=== PATIENT | male | born 1950 | race Caucasian/White ===

== ENCOUNTER 2017-06-22 13:47 | Day surgery (SDC) | payer MEDICARE, OTHER ==
[2017-06-22] MEDS ORDERED: LACTATED RINGERS 1,000 ML IV ONE (14:15)
[2017-06-22] MEDS ORDERED: MIDAZOLAM 2 MG/2 ML VIAL IVP ONE (14:43)
[2017-06-22] MEDS ORDERED: fentaNYL 100 MCG/2 ML VIAL IVP ONE (14:43)
[2017-06-22 15:54] VITALS: BP 126/72
== END 2017-06-22 13:48 | disposition home or self-care (01) ==
LOC: SDS 13:47
PROVIDERS: ATTEND Surgery
PROC: 0DJD8ZZ Inspection of Lower Intestinal Tract, Via Natural or Artificial Opening Endoscopic (ICD-10-PCS; principal; 2017-06-22 14:45)
DX: Z12.11 Encounter for screening for malignant neoplasm of colon (principal); K57.90 Diverticulosis of intestine, part unspecified, without perforation or abscess without bleeding; I25.10 Atherosclerotic heart disease of native coronary artery without angina pectoris; Z79.82 Long term (current) use of aspirin; Z79.02 Long term (current) use of antithrombotics/antiplatelets; Z95.1 Presence of aortocoronary bypass graft
CPT/HCPCS: G0121; J7120

== ENCOUNTER 2018-02-22 08:56 | Outpatient (CLI) | payer MEDICARE, OTHER ==
[2018-02-22 17:22] LABS: BASOPHILS # (AUTO) 0.1 10^3/uL (0.0-0.1); BASOPHILS % (AUTO) 1.1 %; EOSINOPHILS # (AUTO) 0.2 10^3/uL (0.0-0.7); EOSINOPHILS % (AUTO) 3.2 %; HGB - HEMOGLOBIN 14.7 g/dL (14.0-18.0); LYMPHOCYTES # (AUTO) 1.1 10^3/uL (1.5-3.5); LYMPHOCYTES % (AUTO) 21.7 %; MEAN CORPUSCULAR HEMOGLOBIN 30.8 pg (27.0-31.0); MEAN CORPUSCULAR HGB CONC 33.9 g/dL (32.0-36.0); MEAN CORPUSCULAR VOLUME 90.7 fL (80.0-94.0); MEAN PLATELET VOLUME 6.8 fL (7.4-11.4); MONOCYTES # (AUTO) 0.6 10^3/uL (0.0-1.0); MONOCYTES % (AUTO) 12.2 %; NEUTROPHILS # (AUTO) 3.1 10^3/uL (1.5-6.6); NEUTROPHILS % (AUTO) 61.8 %; PLT - PLATELET COUNT 230 10^3/uL (130-450); RED BLOOD COUNT 4.77 10^6/uL (4.70-6.10); RED CELL DISTRIBUTION WIDTH 12.8 % (12.0-15.0)
[2018-02-22 17:37] LABS: ALBUMIN 4.4 g/dL (3.2-5.5); ALBUMIN/GLOBULIN RATIO 1.7 (1.0-2.2); ALKALINE PHOSPHATASE 57 IU/L (42-121); ALT ALANINE AMINOTRANSFERASE 19 IU/L (10-60); AST ASPARTATE AMINOTRANSFERASE 22 IU/L (10-42); BILIRUBIN,TOTAL 0.9 mg/dL (0.2-1.0); BUN - BLOOD UREA NITROGEN 13 mg/dL (6-20); CALCIUM 9.2 mg/dL (8.5-10.3); CARBON DIOXIDE - CO2 27 mmol/L (21-32); CHLORIDE 97 mmol/L (101-111); CHOL/HDL RATIO 3.4 (<5.0); CHOLESTEROL 214 mg/dL; CREATININE 0.9 mg/dL (0.6-1.2); GFR - MDRD 84 (>89); GLUCOSE 104 mg/dL (70-100); HDL CHOLESTEROL 63 mg/dL; LDL CHOLESTEROL,CALCULATED 132 mg/dL; LDL/HDL RATIO 2.1 (<3.6); SODIUM 133 mmol/L (135-145); VLDL CHOLESTEROL 19 mg/dL
[2018-02-22 17:42] LABS: HB2 TOTAL 16.4 g/dL; HEMOGLOBIN A1C 0.59 g/dL; HEMOGLOBIN A1C % 5.4 % (4.6-6.2)
== END 2018-02-22 08:57 | disposition home or self-care (01) ==
LOC: LAB.F 08:56
PROVIDERS: ATTEND Nurse Practitioner Family
DX: I70.90 Unspecified atherosclerosis (principal); E78.5 Hyperlipidemia, unspecified; R73.01 Impaired fasting glucose; Z12.5 Encounter for screening for malignant neoplasm of prostate; F32.9 Major depressive disorder, single episode, unspecified
CPT/HCPCS: 36415; 80053; 80061; 83036; 84443; 85025; G0103; 83721; 84153

== ENCOUNTER 2019-09-06 07:28 | Outpatient (CLI) | payer MEDICARE, OTHER ==
[2019-09-06 17:05] LABS: ALBUMIN 4.3 g/dL (3.2-5.5); ALBUMIN/GLOBULIN RATIO 1.5 (1.0-2.2); ALKALINE PHOSPHATASE 56 IU/L (42-121); ALT ALANINE AMINOTRANSFERASE 23 IU/L (10-60); AST ASPARTATE AMINOTRANSFERASE 20 IU/L (10-42); BILIRUBIN,TOTAL 0.7 mg/dL (0.2-1.0); BUN - BLOOD UREA NITROGEN 13 mg/dL (6-20); CALCIUM 9.5 mg/dL (8.5-10.3); CARBON DIOXIDE - CO2 29 mmol/L (21-32); CHLORIDE 99 mmol/L (101-111); CHOL/HDL RATIO 2.6 (<5.0); CHOLESTEROL 176 mg/dL; CREATININE 0.9 mg/dL (0.6-1.2); GFR - MDRD 84 (>89); GLUCOSE 109 mg/dL (70-100); HDL CHOLESTEROL 69 mg/dL; LDL CHOLESTEROL,CALCULATED 85 mg/dL; LDL/HDL RATIO 1.2 (<3.6); SODIUM 135 mmol/L (135-145); TOTAL PROTEIN 7.2 g/dL (6.7-8.2); VLDL CHOLESTEROL 22 mg/dL
== END 2019-09-06 07:29 | disposition home or self-care (01) ==
LOC: LAB.S 07:28
PROVIDERS: ATTEND Internal Medicine
DX: E78.5 Hyperlipidemia, unspecified (principal); Z12.5 Encounter for screening for malignant neoplasm of prostate
CPT/HCPCS: 36415; 80053; 80061; G0103; 83721; 84153

== ENCOUNTER 2019-12-05 07:00 | Outpatient (CLI) | payer MEDICARE, OTHER | END 2019-12-05 23:59 | disposition home or self-care (01) | LOC: LAB.R 07:00 | PROVIDERS: ATTEND Internal Medicine | DX: R19.7 Diarrhea, unspecified (principal) | CPT/HCPCS: 81599; 87045; 87046; 87177; 87209; 87493 ==

== ENCOUNTER 2020-05-10 16:20 | Outpatient (CLI) | payer MEDICARE, OTHER ==
--- NOTE | 2020-05-10 17:05 | XRAY Report ---
PROCEDURE: Wrist 2 View LT INDICATIONS: D48.5 TECHNIQUE: 2 views of the wrist were acquired. COMPARISON: No previous study is available for comparison. 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 An ossification posterior to the wrist may represent an intra-articular loose body. Degenerative changes are seen at the capitolunate and capitoscaphoid petey culations. Soft tissues: No suspicious soft tissue calcifications. Surgical clips are seen projecting over the volar aspect of the wrist. 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 Possible ossified intra-articular loose body at the dorsal aspect of the wrist. Reviewed by: Philip Bowling MD on 05/10/2020 5:03 PM PDT Approved by: Philip Bowling MD on 05/10/2020 5:03 PM PDT Station ID: [id number]
== END 2020-05-10 16:21 | disposition home or self-care (01) ==
LOC: DI.S 16:20
PROVIDERS: ATTEND Internal Medicine
DX: M19.032 Primary osteoarthritis, left wrist (principal); M84.48XA Pathological fracture, other site, initial encounter for fracture

== ENCOUNTER 2020-09-03 13:04 | Outpatient (CLI) | payer MEDICARE, OTHER ==
--- NOTE | 2020-09-03 14:18 | CT Report ---
PROCEDURE: UPPER EXTREMITY WO - LT INDICATIONS: WRIST - POST TRAUMATIC OSTEOARTHRITIS LT WRIST TECHNIQUE: Noncontrast 3 mm axial sections acquired of the left wrist, with coronal and sagittal reformats. COMPARISON: Left wrist radiographs dated 05/10/2020 FINDINGS: Image quality: Excellent. Bones: A chronic ununited fracture is seen at the waist of the scaphoid with cortication of the frac ture margins and subcortical cystic changes as well as marginal osteophyte formation. There is wideni ng of the dorsal scapholunate interval to 6 mm that is compatible with associated scapholunate ligame nt tearing. Dorsal tilting of the lunate is seen with mild proximal migration of the capitate, compat ible with early scapholunate advanced collapse (SNAC wrist). Severe joint space narrowing is seen at the radial scaphoid articulation with remodeling of the artic ular surfaces and subchondral cystic changes. Moderate to severe joint space narrowing is seen at the radiolunate articulation. There is severe narrowing of the capitolunate and hamatolunate articulatio ns. Additional scattered degenerative cystic changes are seen in the hamate, triquetrum, and capitate . Mild degenerative changes are seen in the distal radioulnar joint. Soft tissues: No acute soft tissue edema is seen. A probable small amount of fluid is seen surroundi ng the extensor pollicis longus and extensor radialis brevis and longus tendons likely represents mil d tenosynovitis. However, the ligaments and tendons as well as the articular cartilages are not well evaluated with CT. An ossified loose body is seen dorsal to the scaphoid measuring 14 x 7 x 10 mm. Ad ditional adjacent smaller osseous fragments are noted. IMPRESSION: 1. Chronic ununited fracture at the waist of the scaphoid with widening of the dorsal scapholunate i nterval that is suspicious for concurrent scapholunate ligament tearing. 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 2. Multifocal degenerative changes throughout the carpal bones as described above, most severe at th e radioscaphoid articulation. 3. Multiple ossified intra-articular loose bodies are seen at the dorsum of the wrist, the largest o f which measures up to 14 mm in maximum diameter. 4. Probable tenosynovitis of the second and third extensor compartment tendons. Reviewed by: Philip Bowling MD on 09/03/2020 2:17 PM PST Approved by: Philip Bowling MD on 09/03/2020 2:17 PM PST Station ID: [id number]
== END 2020-09-03 13:05 | disposition home or self-care (01) ==
LOC: DI 13:04
PROVIDERS: ATTEND Orthopaedic Surgery
DX: S62.002K Unspecified fracture of navicular [scaphoid] bone of left wrist, subsequent encounter for fracture with nonunion (principal); M19.032 Primary osteoarthritis, left wrist

== ENCOUNTER 2020-09-20 13:31 | Outpatient (CLI) | payer MEDICARE, OTHER ==
[2020-09-20 15:05] LABS: CALCIUM 9.1 mg/dL (8.5-10.3); CREATININE 0.8 mg/dL (0.6-1.2)
== END 2020-09-20 13:32 | disposition home or self-care (01) ==
LOC: LAB 13:31
PROVIDERS: ATTEND Orthopaedic Surgery
DX: Z01.818 Encounter for other preprocedural examination (principal); G56.02 Carpal tunnel syndrome, left upper limb; M19.132 Post-traumatic osteoarthritis, left wrist; Z20.828 Contact with and (suspected) exposure to other viral communicable diseases; I73.9 Peripheral vascular disease, unspecified; E78.5 Hyperlipidemia, unspecified
CPT/HCPCS: 36415; 80048; 93005; U0004

== ENCOUNTER 2020-09-25 11:00 | Day surgery (SDC) | payer MEDICARE, OTHER ==
[~2020-09-25 11:00] MED LIST: ACETAMINOPHEN 1,000 MG/100 ML 100 ML IV ONE; LIDOCAINE 1%-EPI 1:100000 20 ML MDV ONE
[2020-09-25] MEDS ORDERED: LACTATED RINGERS 1,000 ML IV ONE (11:23)
[2020-09-25] MEDS ORDERED: MIDAZOLAM 2 MG/2 ML VIAL IVP ONE (11:52)
[2020-09-25] MEDS ORDERED: PROPOFOL 200 MG/20 ML VIAL IVP ONE (11:52)
[2020-09-25] MEDS ORDERED: KETAMINE 500 MG/10 ML VIAL IVP ONE (11:52)
[2020-09-25] MEDS ORDERED: ACETAMINOPHEN 1,000 MG/100 ML 100 ML IV ONE (11:52)
[2020-09-25] MEDS ORDERED: fentaNYL 100 MCG/2 ML VIAL IVP ONE (11:52)
[2020-09-25] MEDS ORDERED: ONDANSETRON 4 MG/2 ML VIAL IVP PRN (12:00)
[2020-09-25] MEDS ORDERED: METOCLOPRAMIDE 10 MG/2 ML VIAL IVP PRN (12:00)
[2020-09-25] MEDS ORDERED: MORPHINE 2 MG/ML CARPUJECT IVP PRN (12:00)
[2020-09-25] MEDS ORDERED: ATROPINE ABBOJECT 1 MG/10 ML SYRINGE IVP PRN (12:00)
[2020-09-25] MEDS ORDERED: NALOXONE 0.4 MG/ML VIAL IVP PRN (12:00)
[2020-09-25] MEDS ORDERED: ePHEDrine 50 MG/ML VIAL IVP PRN (12:00)
[2020-09-25] MEDS ORDERED: LACTATED RINGERS 1,000 ML IV SCH (12:00)
[2020-09-25] MEDS ORDERED: HYDROmorphone 0.5 MG/0.5 ML SYRINGE IVP PRN (12:00)
[2020-09-25] MEDS ORDERED: fentaNYL 100 MCG/2 ML VIAL IVP PRN (12:00)
--- NOTE | 2020-09-25 12:00 | ANESTHESIA ---
Pre-Anesthesia VS, & Labs - Diagnosis left carpal tunnel syndrome - Procedure Left CTR, Vital Signs: Temp Pulse Resp BP Pulse Ox 36.3 C L 79 16 143/77 H 99 09/25/20 11:16 09/25/20 11:16 09/25/20 11:16 09/25/20 11:16 09/25/20 11:16 Height: 5 ft 6 in Weight (kg): 67.4 kg Body Mass Index: 24.0 BMI Classification: Healthy weight - NPO Last Fluid Intake: 1100, black coffee - Lab Results Lab results reviewed: Yes Home Medications and Allergies Home Medications: Ambulatory Orders cilostazoL [Pletal] 100 mg PO BID 09/18/20 Clopidogrel [Plavix] 75 mg PO DAILY 06/22/17 Simvastatin 80 mg PO DAILY 06/22/17 cilostazoL [Pletal] 100 mg PO BID 09/18/20 Allergies/Adverse Reactions: Allergies Allergy/AdvReac Type Severity Reaction Status Date / Time No Known Drug Allergies Allergy Verified 06/18/17 15:03 Anes History & Medical History - Anesthetic History Anesthesia Complications: reports: No previous complications Family history of Anesthesia Complications: Denies Family history of Malignant Hyperthermia: Denies - Medical History Cardiovascular: reports: High cholesterol, Coronary artery disease, Peripheral Vascular Disease Pulmonary: reports: None Gastrointestinal: reports: None Urinary: reports: None Musculoskeletal: reports: Osteoarthritis Endocrine/Autoimmune: reports: None Skin: reports: None - Surgical History General: Colonoscopy, Other Cardiothoracic: CABG, Coronary stent, Cardiac catheterization, Other Orthopedic: Knee replacement Results - EKG Results EKG Comparison: Reviewed EKG, Normal EKG Exam General: Alert, Oriented x3, Cooperative, No acute distress Dental: WNL Mouth Openin Fingerbreadth Neck Mobility: Normal Mallampati classification: I Respiratory: Lungs clear, Normal breath sounds, No respiratory distress, No accessory muscle use Cardiovascular: Regular rate, Normal S1, Normal S2, No murmurs Plan Anesthesia Type: Other Block (supraclavicular) Regional Block: Per Surgeon's request for Post Op pain control Consent for Procedure(s) Verified and Reviewed: Yes Code Status: Attempt Resuscitation ASA classification: 3-Severe systemic disease Is this case an emergency?: No
[2020-09-25] MEDS ORDERED: LIDOCAINE MPF 1%-EPI 1:200000 30 ML VIAL SUBQ ONE ×2 (12:17)
[2020-09-25] MEDS ORDERED: HYDROcod/ACETAM 5/325 MG TABLET PO PRN (13:14)
[2020-09-25] MEDS ORDERED: HYDROcod/ACETAM 10 MG/325 MG TABLET PO PRN (13:14)
[2020-09-25] MEDS ORDERED: KETOROLAC 15 MG/ML VIAL IVP STA (13:14)
[2020-09-25 13:27] VITALS: BP 140/72
--- NOTE | 2020-09-25 13:32 | OPERATIVE REPORT ---
Operative Report - General Procedure Date: 09/25/20 Planned Procedure: Left carpal tunnel release and left radial styloidectomy Pre-Op Diagnosis: Left carpal tunnel syndrome, posttraumatic arthritis left wrist Procedure Performed: Left carpal tunnel release and left wrist radial styloidectomy Post Op Diagnosis: Same as preoperative diagnosis - Procedure Note Primary Surgeon: Dhiraj Ely M.D. Secondary Surgeon: CHIQUI Khalil Anesthesia Provider: Carrie Ruiz CRNA Anesthesia Technique: Regional block Estimated Blood Loss (mL): 5 Indications: This is a 70-year-old gentleman with a history of fracture to the left scaphoid about 50 years ago. He now has pain to his left wrist that is well localized to the radial aspect of the left wrist. This is been present off and on for a number of years and is gradually worsened. He also has some stiffness to left wrist. His other problem is numbness to fingers of left hand in the median nerve distribution associated with some decreased strength with thumb pinch. He has thenar atrophy, positive Tinel and Phalen with decreased two-point discrimination consistent with left carpal tunnel syndrome. His x-rays and CT scan of the left wrist show a scapholunate advanced collapse arthritic wrist pattern with radial scaphoid osteophytes that are fairly marked and restricting radial deviation. Findings: He had a nonspecific tenosynovitis about the left carpal tunnel and slight atrophy of the median nerve with narrowing beneath the transverse carpal ligament. There was a moderately large osteophyte involving the radial styloid and scaphoid, kissing osteophytes. - Other Other Information/Narrative: Patient received a supra clavicular block to left arm. He was brought to the operating room table, placed in the supine position with an arm table to the side of the table. A pneumatic tourniquet was applied to the proximal left arm. The left upper extremity was prepped and draped in a sterile manner in the usual fashion. A timeout procedure was performed by the entire operating room team and all were in agreement. Local anesthesia, 1% epinephrine were injected at the operative sites, 9 cc to both incisions in total. A 2 and half centimeter incision was made base of left palm in line with the third webspace. The incision started just below the wrist flexor crease and extended distally. A small self-retaining retractor was inserted. The subcutaneous tissue and palmar aponeurosis were divided in line with the incision. The transverse carpal ligament was identified. The transverse carpal ligament was incised and then a protective groove retractor was inserted beneath the carpal ligament. The transverse carpal ligament was then divided from proximal to distal under direct visualization. The remaining transverse carpal ligament was divided from distal to proximal, again using a groove retractor to protect the median nerve and carpal tunnel structures. A full decompression of the median nerve was achieved. The tourniquet was deflated after 8 minutes. Hemostasis was achieved electrocautery. Skin incision closed with 2 nylon vertical mattress sutures.A second incision was made over the snuffbox. Care was taken to avoid superficial radial nerve with spreading of subcutaneous tissues with a tenotomy scissor. The tendons were protected and the capsule to the radial scaphoid joint was opened. The osteophytes about the scaphoid and radial styloid were exposed and were removed with a small bur. A decompression of the radial scaphoid joint was achieved with osteophyte excision and this was verified with the mini C arm as well. The joint was irrigated. The capsule was closed with 2-0 Vicryl. The subcutaneous tissue was closed with 2-0 Vicryl and the skin was closed with interrupted 4-0 nylon. Xeroform, dry sterile dressing, cast padding and a Juan wrap was used to provide a soft, bulky, mildly compression dressing to the left hand and forearm. He tolerated the procedure well. Tourniquet time was about 45 minutes in total
--- NOTE | 2020-09-25 17:10 | ANESTHESIA POST OP EVALUATION ---
Anesthesia Post Eval - Post Anesthesia Eval Vitals: Last Vital Signs Temp 36.3 C L 09/25/20 13:15 Pulse 80 09/25/20 13:26 Resp 15 09/25/20 13:26 BP 140/72 H 09/25/20 13:26 Pulse Ox 100 09/25/20 13:26 CV Function Including HR & BP: positive: Stable Pain Control: positive: Satisfactory Nausea & Vomiting: positive: Negative Mental Status: positive: Baseline Respiratory Status: Airway Patent Hydration Status: Satisfactory Anesthesia Complications: positive: None
== END 2020-09-25 11:01 | disposition home or self-care (01) ==
LOC: SDS 11:00
PROVIDERS: ATTEND Orthopaedic Surgery
DX: G56.02 Carpal tunnel syndrome, left upper limb (principal); M19.132 Post-traumatic osteoarthritis, left wrist; M65.9 Synovitis and tenosynovitis, unspecified; I25.10 Atherosclerotic heart disease of native coronary artery without angina pectoris; I73.9 Peripheral vascular disease, unspecified; Z95.1 Presence of aortocoronary bypass graft; Z95.5 Presence of coronary angioplasty implant and graft; Z79.02 Long term (current) use of antithrombotics/antiplatelets
CPT/HCPCS: 25230; 64721; J0131; J7120

== ENCOUNTER 2020-09-30 07:00 | Outpatient (CLI) | payer MEDICARE, OTHER ==
--- NOTE | 2020-09-30 15:37 | XRAY Report ---
PROCEDURE: Wrist 3 View LT INDICATIONS: POST OP, OSTEOARTHRITIS TECHNIQUE: 3 views of the wrist were acquired. COMPARISON: X-ray wrist 04/10/2020 FINDINGS: Bones: No fractures or dislocations. No suspicious bony lesions. There is appearance of a nonunion scaphoid fracture and subsequent sclerosis, unchanged compared to prior exam. Clips are noted overly ing the radial styloid. Degenerative changes at the radial scaphoid articulation are identified. Calc ification at this region is present which could represent a loose body. Arthritic changes at the capi tolunate and capitoscaphoid articulations are also noted. Soft tissues: No suspicious soft tissue calcifications. IMPRESSION: Stable interval exam demonstrating chronic nonunion of scaphoid waist fracture with superimposed dege nerative change. Reviewed by: Keisha Coffey MD on 09/30/2020 3:35 PM PST Approved by: Keisha Coffey MD on 09/30/2020 3:35 PM PST Station ID: [id number]
== END 2020-09-30 23:59 | disposition home or self-care (01) ==
LOC: DI.N 07:00
PROVIDERS: ATTEND Physician Assistant
DX: M19.132 Post-traumatic osteoarthritis, left wrist (principal)

== ENCOUNTER 2020-11-14 08:00 | Outpatient (CLI) | payer MEDICARE, OTHER ==
--- NOTE | 2020-11-14 17:17 | XRAY Report ---
PROCEDURE: Wrist 3 View LT INDICATIONS: POST-TRAUMATIC OSTEOARTHRITIS, LEFT WRIST TECHNIQUE: 3 views of the wrist were acquired. COMPARISON: 09/30/2020 FINDINGS: Bones: Post surgical changes are again noted involving soft tissue over radial aspect of distal radi us unchanged from prior study. No gross hardware loosening or failure is seen. Chronic nonunion of sc aphoid waist fracture is again seen with persistent lucency along fracture site and sclerotic margin. No new fracture or dislocation. Osteoarthritic changes at radiocarpal joint and scaphotrapezial join t is seen. No new fractures or dislocations. No suspicious bony lesions. Scaphoid view: Increased sclerosis involving proximal fragment of the scaphoid, suspicious for avasc ular necrosis. Soft tissues: No suspicious soft tissue calcifications. IMPRESSION: Chronic nonunion of scaphoid waist fracture with increased sclerotic changes involving proximal fragm ent concerning for avascular necrosis. No new fracture or dislocation. Diffuse wrist joint osteoarthr itis. Reviewed by: Darrick Nicholas MD on 11/14/2020 5:15 PM PST Approved by: Darrick Nicholas MD on 11/14/2020 5:15 PM PST Station ID: [id number]
== END 2020-11-14 23:59 | disposition home or self-care (01) ==
LOC: DI.N 08:00
PROVIDERS: ATTEND Physician Assistant
DX: S62.002K Unspecified fracture of navicular [scaphoid] bone of left wrist, subsequent encounter for fracture with nonunion (principal); M19.032 Primary osteoarthritis, left wrist

== ENCOUNTER 2021-01-10 14:25 | Outpatient (CLI) | payer MEDICARE, OTHER | END 2021-01-10 14:26 | disposition critical access hospital (66) | LOC: EMS 14:25 | PROVIDERS: ATTEND Radiology Diagnostic Radiology | DX: F41.9 Anxiety disorder, unspecified (principal) | CPT/HCPCS: A0425; A0429 ==

== ENCOUNTER 2021-01-10 15:15 | Emergency (ER) | payer MEDICARE, OTHER ==
[2021-01-10] MEDS ORDERED: LORazepam 2 MG/ML VIAL IVP STA ×2 (15:28→16:25)
--- NOTE | 2021-01-10 15:39 | ED Physician Documentation ---
History of Present Illness - Stated complaint Stated Complaint: ANXIETY - Additonal information Additional information: 70-year-old male was brought into the emergency department for evaluation of what is suspected to be a panic attack. Per EMS report the patient does have a history of anxiety though it is untreated. His had reported that for the last few days he has been getting increasingly anxious. He woke up at about 2 this morning with a lot of dread and worry. EMS reported that there was concern he thought he may be dying. On presentation to the emergency department the patient is alert breathing deeply and tachypneic. He is not able to meaningfully participate in the history. When asked questions he will grab his head and say oh my God. pmh: HTN, HLD, CABG meds: plavix, crestor Review of Systems Unable to obtain: Other (panic attack) PD PAST MEDICAL HISTORY - Past Medical History Cardiovascular: High cholesterol, Coronary artery disease, Peripheral Vascular Disease Respiratory: None Endocrine/Autoimmune: None GI: None : None HEENT: Chronic vision loss Psych: None Musculoskeletal: Osteoarthritis Derm: None - Past Surgical History General: Colonoscopy, Other Ortho: Knee replacement Cardiovascular: CABG, Coronary stent, Cardiac catheterization, Other - Present Medications Home Medications: Ambulatory Orders Medication Instructions Recorded Confirmed Clopidogrel [Plavix] 75 mg PO DAILY 06/22/17 09/25/20 Simvastatin 80 mg PO DAILY 06/22/17 09/25/20 cilostazoL [Pletal] 100 mg PO BID 09/18/20 09/25/20 oxyCODONE [Roxicodone] 5 mg PO Q4-6H #14 tablet 09/25/20 LORazepam [Ativan] 1 mg PO BID PRN #10 tablet 01/10/21 hydrOXYzine HCL [Hydroxyzine HCl] 25 mg PO BID PRN #20 tablet 01/10/21 - Allergies Allergies/Adverse Reactions: Allergies Allergy/AdvReac Type Severity Reaction Status Date / Time No Known Drug Allergies Allergy Verified 01/10/21 15:24 PD ED PE EXPANDED - General General: Anxious - Cardiac Cardiac: Regular Rate, Regular Rhythm, Radial strong equal, Cap refill < 2 sec - Respiratory Respiratory: Clear to ausultation gretel, Other (tachypneic) - Abdomen Abdomen: Normal Bowel sounds. No: Tender to palpation - Derm Derm: Normal color, Warm and dry - Neuro Neuro: Alert and Oriented X 3, CNII-XII intact - Psych Psych: Anxious (Patient breathing heavily and deeply, when asked questions will just respond with oh my God) Results - Vitals Vitals: Vital Signs - 24 hr 01/10/21 01/10/21 15:24 15:38 Temperature 36.6 C 36.6 C Heart Rate 94 94 Respiratory 22 29 H Rate Blood Pressure 161/85 H 161/85 H O2 Saturation 100 100 Oxygen O2 Source Room air - EKG (time done) 1603 Rate: Rate (enter#) (85) Rhythm: NSR Payette: Normal Intervals: Normal NC QRS: Normal Ischemia: Normal ST segments Compare to prior EKG: Unchanged from prior EKG Computer interpretation: Agree with computer - Labs Labs: Laboratory Tests 01/10/21 01/10/21 01/10/21 15:40 15:40 15:40 WBC 7.6 RBC 4.71 Hgb 14.7 Hct 41.0 L MCV 87.0 MCH 31.2 H MCHC 35.9 RDW 11.7 L Plt Count 265 MPV 8.3 Neut # (Auto) 5.5 Lymph # (Auto) 1.2 L Real # (Auto) 0.8 Eos # (Auto) 0.0 Baso # (Auto) 0.0 Absolute Nucleated RBC 0.00 Nucleated RBC % 0.0 Sodium 129 L Potassium 3.3 L Chloride 92 L Carbon Dioxide 21 Anion Gap 16.0 H BUN 12 Creatinine 0.8 Estimated GFR (MDRD) 96 Glucose 110 H Calcium 9.9 Total Bilirubin 0.9 AST 25 ALT 25 Alkaline Phosphatase 62 Troponin I High Sens < 2.3 L Total Protein 7.6 Albumin 4.5 Globulin 3.1 Albumin/Globulin Ratio 1.5 Lipase 34 PD MEDICAL DECISION MAKING - ED course Complexity details: reviewed results, re-evaluated patient, considered differential, d/w patient, d/w family ED course: 70-year-old male presents the emergency department with panic and anxiety. He does have a history of baseline anxiety and after control of symptoms was achieved the reports that on a return trip home from [place] the patient and her had begun to argue about his driving habits and she knew that she was stressing him out. She also reports that recently he has begun to have some memory changes for which he has a referral to a neurologist pending. She feels that that is also increasing his anxiety. They returned home yesterday and this morning he woke up anxious and worried and was unable to get out of that cycle of worry. On presentation he appeared anxious very tachypneic breathing deeply and was unable to really answer most of my questions besides saying all my God. Screening labs are obtained he has a nonischemic sinus rhythm EKG. High- sensitivity troponin was negative. He is not significantly anemic. His sodium was 129 and his potassium was 3.2. This was repleted with 40 mEq of potassium. After initial presentation he was given 1 mg of Ativan followed by a second milligram which brought full resolution of his symptoms to a halt. At that point we were able to have a normal conversation and the patient had no focal neuro deficits reports of chest pain or shortness of breath. He does report that he has a longstanding history of anxiety and is worried about some upcoming appointments but he feels better now and does wish to be discharged home. I would like to start a clean out driller scription of hydroxyzine for him with a very limited amount of lorazepam. Patient will be seen by his primary care provider in follow-up Dr. Castillo. Emergent and worrisome return precautions were discussed. Departure - Departure Disposition: Home, Self Care Clinical Impression: Panic attack Condition: Stable Record reviewed to determine appropriate education?: Yes Instructions: ED Panic Attack Follow-Up: Jean Claude Castillo MD [Credentialed Staff Provider] - Prescriptions: LORazepam [Ativan] 1 mg PO BID PRN #10 tablet PRN Reason: Anxiety hydrOXYzine HCL [Hydroxyzine HCl] 25 mg PO BID PRN #20 tablet PRN Reason: Anxiety Comments: Isaac you were seen in the emergency department today after having a panic attack. Reassuring your EKG looked pretty pretty normal for age. You are doing well. I know that there is stress and anxiety that can precipitate these attacks. Continue to follow-up with your primary doctor. When feeling stressed or worried try to breathe slowly and deeply. I have written a prescription for hydroxyzine which can be used 2 or 3 times a day with anxiety. Be careful with this it may make you drowsy so do not drive after taking it. If the hydroxyzine does not help with your panic you may take 1 tablet of Ativan or lorazepam. Do not drive if taking this medication. If that does not help your symptoms please call your primary care doctor or return to the emergency department with another episode. It is important to continue to see the neurologist that you have been referred to as well as your primary doctor in follow-up
[2021-01-10 16:13] LABS: BASOPHILS % (AUTO) 0.4 %; EOSINOPHILS % (AUTO) 0.5 %; HGB - HEMOGLOBIN 14.7 g/dL (14.0-18.0); LYMPHOCYTES # (AUTO) 1.2 10^3/uL (1.5-3.5); MEAN CORPUSCULAR HEMOGLOBIN 31.2 pg (27.0-31.0); MEAN CORPUSCULAR HGB CONC 35.9 g/dL (32.0-36.0); MEAN PLATELET VOLUME 8.3 fL (7.4-11.4); MONOCYTES # (AUTO) 0.8 10^3/uL (0.0-1.0); MONOCYTES % (AUTO) 10.6 %; NEUTROPHILS # (AUTO) 5.5 10^3/uL (1.5-6.6); NEUTROPHILS % (AUTO) 72.2 %; PLT - PLATELET COUNT 265 10^3/uL (130-450); RED BLOOD COUNT 4.71 10^6/uL (4.70-6.10); RED CELL DISTRIBUTION WIDTH 11.7 % (12.0-15.0); WHITE BLOOD COUNT 7.6 x10^3/uL (4.8-10.8)
[2021-01-10 16:28] LABS: ALBUMIN 4.5 g/dL (3.2-5.5); ALBUMIN/GLOBULIN RATIO 1.5 (1.0-2.2); BILIRUBIN,TOTAL 0.9 mg/dL (0.2-1.0); CALCIUM 9.9 mg/dL (8.5-10.3); CREATININE 0.8 mg/dL (0.6-1.2); POTASSIUM 3.3 mmol/L (3.5-5.0); TOTAL PROTEIN 7.6 g/dL (6.7-8.2)
--- NOTE | 2021-01-10 16:30 | XRAY Report ---
PROCEDURE: Chest 1 View X-Ray INDICATIONS: Chest Pain TECHNIQUE: One view of the chest was acquired. COMPARISON: None FINDINGS: Surgical changes and devices: Median sternotomy changes and CABG clips. Lungs and pleura: No pleural effusions or pneumothorax. Lungs are clear. Mediastinum: Mediastinal contours appear normal. Heart size is normal. Bones and chest wall: No suspicious bony lesions. Overlying soft tissues appear unremarkable. IMPRESSION: No acute findings demonstrated. Reviewed by: Satish Miles MD on 01/10/2021 4:29 PM PDT Approved by: Satish Miles MD on 01/10/2021 4:29 PM PDT Station ID: [id number]
[2021-01-10] MEDS ORDERED: POTASSIUM CHLORIDE 20 MEQ TABLET PO STA (17:12)
[2021-01-10] MEDS ORDERED: SODIUM CHLORIDE 0.9% 1,000 ML IV STA (17:12)
[2021-01-10 18:06] VITALS: BP 130/90
== END 2021-01-10 18:12 | disposition home or self-care (01) ==
LOC: EDUNIT# → ED 15:15 → SUPCPDRO 15:15 → ED 18:12
DX: F41.0 Panic disorder [episodic paroxysmal anxiety] (principal); I73.9 Peripheral vascular disease, unspecified; Z79.01 Long term (current) use of anticoagulants
CPT/HCPCS: 36415; 71045; 80053; 83690; 84484; 85025; 93005; 96374; 96376; 99284; A9270; J2060

== ENCOUNTER 2021-01-23 15:47 | Outpatient (CLI) | payer MEDICARE, OTHER ==
[2021-01-23 20:35] LABS: THYROID STIMULATING HORMONE 1.18 uIU/mL (0.34-5.60)
== END 2021-01-23 15:48 | disposition home or self-care (01) ==
LOC: LAB.S 15:47
PROVIDERS: ATTEND Internal Medicine
DX: R41.3 Other amnesia (principal)
CPT/HCPCS: 36415; 82607; 84443

== ENCOUNTER 2021-04-07 15:13 | Outpatient (CLI) | payer MEDICARE, OTHER ==
--- NOTE | 2021-04-07 20:26 | Ultrasound Report ---
PROCEDURE: Carotid Doppler Complete INDICATIONS: VASCULAR DEMENTIA, PERIPHERAL VASCULAR DISEASE TECHNIQUE: Color and pulse Doppler interrogation was performed of both carotid systems, with image documentation and velocity measurements. COMPARISON: None. FINDINGS: Right side: Brachial blood pressure: 144/81 mm Hg. Common carotid artery peak systolic velocity: 74.2 cm/sec. Internal carotid artery peak systolic velocity: 68.2 cm/sec. Internal carotid artery end diastolic velocity: 18 cm/sec. External carotid artery peak systolic velocity: 56.3 cm/sec. ICA/CCA peak systolic ratio: 0.9 . Valadez scale imaging description: Scattered atherosclerotic plaques are noted along distal common gallo tid artery and proximal internal and external carotid arteries. Percent internal carotid artery stenosis: Less than 50% . Vertebral artery: Flow direction is antegrade. Left side: Brachial blood pressure: 141/85 mm Hg. Common carotid artery peak systolic velocity: 68.7 cm/sec. Internal carotid artery peak systolic velocity: 70.1 cm/sec. Internal carotid artery end diastolic velocity: 20.6 cm/sec. External carotid artery peak systolic velocity: 73 cm/sec. ICA/CCA peak systolic ratio: 1.0 . Valadez scale imaging description: Scattered atherosclerotic plaques are noted along distal common gallo tid artery and proximal internal and external carotid arteries. Percent internal carotid artery stenosis: Less than 50% . Vertebral artery: Flow direction is antegrade. IMPRESSION: Scattered atherosclerotic disease in bilateral carotid arteries with less than 50% stenosis in bilate ral proximal internal carotid arteries. The estimate of stenosis included in the report of the imaging study was calculated using the NASCET method Reviewed by: Darrick Nicholas MD on 04/07/2021 8:25 PM PDT Approved by: Darrick Nicholas MD on 04/07/2021 8:25 PM PDT Station ID: [id number]
== END 2021-04-07 15:14 | disposition home or self-care (01) ==
LOC: DI 15:13
PROVIDERS: ATTEND Psychiatry & Neurology Neurology
DX: I65.23 Occlusion and stenosis of bilateral carotid arteries (principal)
CPT/HCPCS: 93880

== ENCOUNTER 2021-08-27 07:10 | Outpatient (CLI) | payer MEDICARE, OTHER ==
[2021-08-27 14:41] LABS: BASOPHILS # (AUTO) 0.1 10^3/uL (0.0-0.1); BASOPHILS % (AUTO) 0.8 %; EOSINOPHILS # (AUTO) 0.2 10^3/uL (0.0-0.7); EOSINOPHILS % (AUTO) 2.5 %; HCT - HEMATOCRIT 44.1 % (42.0-52.0); HGB - HEMOGLOBIN 14.7 g/dL (14.0-18.0); LYMPHOCYTES # (AUTO) 1.3 10^3/uL (1.5-3.5); LYMPHOCYTES % (AUTO) 21.4 %; MEAN CORPUSCULAR HEMOGLOBIN 31.1 pg (27.0-31.0); MEAN CORPUSCULAR HGB CONC 33.3 g/dL (32.0-36.0); MEAN CORPUSCULAR VOLUME 93.2 fL (80.0-94.0); MEAN PLATELET VOLUME 8.8 fL (7.4-11.4); MONOCYTES # (AUTO) 0.7 10^3/uL (0.0-1.0); MONOCYTES % (AUTO) 12.4 %; NEUTROPHILS # (AUTO) 3.7 10^3/uL (1.5-6.6); NEUTROPHILS % (AUTO) 62.7 %; PLT - PLATELET COUNT 189 10^3/uL (130-450); RED BLOOD COUNT 4.73 10^6/uL (4.70-6.10); RED CELL DISTRIBUTION WIDTH 12.2 % (12.0-15.0); WHITE BLOOD COUNT 5.9 x10^3/uL (4.8-10.8)
[2021-08-27 15:17] LABS: ALBUMIN/GLOBULIN RATIO 1.4 (1.0-2.2); BILIRUBIN,TOTAL 0.6 mg/dL (0.2-1.0); CALCIUM 9.2 mg/dL (8.5-10.3); CREATININE 0.9 mg/dL (0.6-1.2); POTASSIUM 4.3 mmol/L (3.5-5.0); TOTAL PROTEIN 6.8 g/dL (6.7-8.2)
== END 2021-08-27 07:11 | disposition home or self-care (01) ==
LOC: LAB.S 07:10
PROVIDERS: ATTEND Internal Medicine
DX: Z79.899 Other long term (current) drug therapy (principal); Z12.5 Encounter for screening for malignant neoplasm of prostate
CPT/HCPCS: 36415; 80053; 85025; G0103; 84153

== ENCOUNTER 2021-10-04 12:10 | Outpatient (CLI) | payer MEDICARE, OTHER | END 2021-10-04 23:59 | disposition home or self-care (01) | LOC: LAB.S 12:10 | PROVIDERS: ATTEND Emergency Medicine | DX: J02.9 Acute pharyngitis, unspecified (principal) | CPT/HCPCS: 87070 ==

== ENCOUNTER 2021-11-07 07:46 | Outpatient (CLI) | payer MEDICARE, OTHER ==
[2021-11-07 16:01] LABS: CHOL/HDL RATIO 2.5 (<5.0); CHOLESTEROL 142 mg/dL; HDL CHOLESTEROL 56 mg/dL; LDL CHOLESTEROL,CALCULATED 68 mg/dL; LDL/HDL RATIO 1.2 (<3.6); TRIGLYCERIDES 92 mg/dL; VLDL CHOLESTEROL 18 mg/dL
[2021-11-07 21:04] LABS: ESTIMATED AVERAGE GLUCOSE 108 mg/dL (70-100); HEMOGLOBIN A1c% 5.4 % (4.27-6.07)
== END 2021-11-07 07:47 | disposition home or self-care (01) ==
LOC: LAB.S 07:46
DX: I63.9 Cerebral infarction, unspecified (principal); I42.8 Other cardiomyopathies; R79.9 Abnormal finding of blood chemistry, unspecified
CPT/HCPCS: 36415; 80061; 83036; 83721; 83880

== ENCOUNTER 2021-11-14 11:53 | Outpatient (CLI) | payer MEDICARE, OTHER | END 2021-11-14 11:54 | disposition short-term general hospital (02) | LOC: EMS 11:53 | DX: R46.89 Other symptoms and signs involving appearance and behavior (principal) | CPT/HCPCS: A0425; A0429 ==

== ENCOUNTER 2023-01-22 14:14 | Outpatient (CLI) | payer MEDICARE, OTHER ==
[2023-01-22 20:10] LABS: LITHIUM 0.29 mmol/L
[2023-01-22 20:14] LABS: ALBUMIN 4.2 g/dL (3.2-5.5); ALBUMIN/GLOBULIN RATIO 1.4 (1.0-2.2); BILIRUBIN,TOTAL 0.5 mg/dL (0.2-1.0); CALCIUM 9.1 mg/dL (8.5-10.3); CREATININE 0.9 mg/dL (0.6-1.2); POTASSIUM 4.2 mmol/L (3.5-5.0); TOTAL PROTEIN 7.2 g/dL (6.7-8.2)
== END 2023-01-22 14:15 | disposition home or self-care (01) ==
LOC: LAB.S 14:14
PROVIDERS: ATTEND Internal Medicine
DX: F32.A Depression, unspecified (principal); Z51.81 Encounter for therapeutic drug level monitoring
CPT/HCPCS: 36415; 80053; 80178

== ENCOUNTER 2023-05-06 02:52 | Outpatient (CLI) | payer MEDICARE, OTHER | END 2023-05-06 23:59 | disposition critical access hospital (66) | LOC: EMS 02:52 | DX: R46.4 Slowness and poor responsiveness (principal); R41.0 Disorientation, unspecified; R00.0 Tachycardia, unspecified; R32 Unspecified urinary incontinence; R45.1 Restlessness and agitation; W18.30XA Fall on same level, unspecified, initial encounter; Y92.009 Unspecified place in unspecified non-institutional (private) residence as the place of occurrence of the external cause | CPT/HCPCS: A0425; A0429 ==

== ENCOUNTER 2023-05-06 03:29 | Emergency (ER) | payer MEDICARE, OTHER ==
--- NOTE | 2023-05-06 03:48 | ED Physician Documentation ---
History of Present Illness - Stated complaint Stated Complaint: GLF - Chief complaint Chief Complaint: Laceration - History obtained from History obtained from: Patient, Family (), EMS - Additonal information Additional information: 72-year-old man with history of coronary artery disease status post CABG, multiple CVAs, recent hospitalization at [facility] for hyponatremia, presents withAn episode tonight of unwitnessed collapse with possible head trauma (on Plavix, modified trauma called in the field). states that she went into the room and found him foaming at the mouth with eyes open unresponsive and stiff for a period of time. Upon EMS arrival patient appeared to be confused but rapidly improved on the way to the emergency department. No known seizure history. Review of Systems Constitutional: reports: Fatigue. denies: Fever, Chills Cardiac: denies: Chest pain / pressure Respiratory: denies: Dyspnea, Cough GI: denies: Nausea, Vomiting, Diarrhea Neurologic: reports: Seizure (Possible), Altered mental status. denies: Focal weakness, Numbness PD PAST MEDICAL HISTORY - Past Medical History Cardiovascular: High cholesterol, Coronary artery disease, Peripheral Vascular Disease Respiratory: None Endocrine/Autoimmune: None GI: None : None HEENT: Chronic vision loss Psych: None Musculoskeletal: Osteoarthritis Derm: None - Past Surgical History Past Surgical History: Yes General: Colonoscopy, Other Ortho: Knee replacement Cardiovascular: CABG, Coronary stent, Cardiac catheterization, Other - Present Medications Home Medications: Ambulatory Orders Medication Instructions Recorded Confirmed Clopidogrel [Plavix] 75 mg PO DAILY 06/22/17 05/06/23 Aspirin EC [Ecotrin] 81 mg PO DAILY 05/06/23 05/06/23 Atorvastatin Calcium [Lipitor] 80 mg PO DAILY 05/06/23 05/06/23 Cyanocobalamin (Vitamin B-12) 1,000 mcg PO DAILY 05/06/23 05/06/23 [Vitamin B-12] Levetiracetam [Keppra] 750 mg PO BID #60 tablet 05/06/23 Metoprolol Succinate [Toprol Xl] 25 mg PO DAILY 05/06/23 05/06/23 Sertraline HCl 100 mg PO DAILY 05/06/23 05/06/23 Tamsulosin HCl [Flomax] 1 cap PO DAILY 05/06/23 05/06/23 Ubidecarenone/Vit E Acet [Co Q-10 1 cap PO DAILY 05/06/23 05/06/23 100 mg Softgel] Vitamin B Complex 1 tab PO DAILY 05/06/23 05/06/23 glucosamine HCL [Glucosamine HCl] 1 tab PO DAILY 05/06/23 05/06/23 - Allergies Allergies/Adverse Reactions: Allergies Allergy/AdvReac Type Severity Reaction Status Date / Time No Known Drug Allergies Allergy Verified 05/06/23 03:43 - Social History Does the pt smoke?: No Smoking Status: Never smoker PD ED PE NORMAL - Vitals Vital signs reviewed: Yes - General General: No acute distress, Other (AOX2 (unable to correctly give the year)) - HEENT HEENT: Atraumatic, PERRL, EOMI, Moist mucous membranes, Pharynx benign - Neck Neck: No bony TTP, Other (c collar placed on arrival. unable to clear c spine due to age) - Cardiac Cardiac: RRR - Respiratory Respiratory: No respiratory distress, Clear bilaterally - Abdomen Abdomen: Non tender, Non distended - Back Back: No spinal TTP - Derm Derm: Normal color - Extremities Extremities: No deformity - Neuro Neuro: No motor deficit, No sensory deficit Eye Opening: Spontaneous Motor: Obeys Commands Verbal: Confused GCS Score: 14 - Psych Psych: Normal mood, Normal affect Results - Vitals Vitals: Vital Signs - 24 hr 05/06/23 05/06/23 05/06/23 03:29 04:04 04:30 Temperature 36.4 C L Heart Rate 107 H 112 H 102 H Respiratory 17 25 H 23 Rate Blood Pressure 129/79 137/85 H 141/83 H O2 Saturation 96 99 98 05/06/23 05/06/23 05/06/23 05:54 06:00 06:30 Temperature Heart Rate 117 H 133 H 116 H Respiratory 17 21 21 Rate Blood Pressure 133/76 H 126/54 L 136/79 H O2 Saturation 96 96 96 05/06/23 07:00 Temperature Heart Rate 128 H Respiratory 22 Rate Blood Pressure 139/73 H O2 Saturation 96 Oxygen O2 Source Room air - Labs Labs: Laboratory Tests 05/06/23 05/06/23 05/06/23 03:42 03:42 03:42 WBC 10.3 RBC 4.21 L Hgb 12.9 L Hct 36.7 L MCV 87.2 MCH 30.6 MCHC 35.1 RDW 12.5 Plt Count 213 MPV 8.1 Neut # (Auto) 8.5 H Lymph # (Auto) 0.7 L [place] # (Auto) 0.8 Eos # (Auto) 0.2 Baso # (Auto) 0.0 Absolute Nucleated RBC 0.00 Nucleated RBC % 0.0 Sodium 130 L Potassium 3.5 Chloride 98 L Carbon Dioxide 23 Anion Gap 9.0 BUN 24 H Creatinine 0.7 Estimated GFR (MDRD) 111 Glucose 101 Calcium 9.1 Magnesium 1.9 Total Bilirubin 0.6 AST 129 H ALT 163 H Alkaline Phosphatase 130 H Total Protein 6.6 Albumin 3.6 Globulin 3.0 Albumin/Globulin Ratio 1.2 Lipase 49 Procalcitonin Immunoas 0.13 Ethyl Alcohol < 10.0 PD Medical Decision Making - ED course ED course: 72yM presents to the ED after recent hospitalization for hyponatremia, with episode tonight of possible seizure. unwitnessed fall therefore modified trauma was called in the field with possibility of HT on plavix. C collar placed on arrival. CT head and c spine ordered as well as one view CXR and pelvic XR. cbc, abdominal panel, alcohol, procalcitonin ordered. plan to f/u results. 1g IV keppra ordered for seizure. 6:30am - Attempted to contact [facility] neurology but Dr. Wanda Erwin, [employer] neurologist, told transfer center to call Dr. Rollins when he arrives at 7am. The number the transfer center provided was to a clinic that is not open. We will continue to attempt to transfer to [facility]. Plan to endorse to incoming daytime ed md at 7am shift change. d/w Dr. Wanda Erwin, neurology - She states he sees Dr. Rollins for stroke. The patient previously followed with [facility] neurology for years. Dr. Erwin states she cannot comment on or advise about any new ongoing issue including seizure. She can give historical information and states he's had several strokes over the course of several years back to 2013. He had a workup for CVA in February and only uncovered multiple old lacunar strokes. transfer center called back with the correct [employer] neurologist- Dr. Isacc Beckwith. d/w Dr. Beckwith who recommends to give additional 1g keppra, order MRI head, and then discharge him for follow up with Dr. Rollins. patient will start 750 bid keppra outpatient. Departure - Departure Clinical Impression: Collapse, Weakness, Seizure Condition: Stable Instructions: First Aid Seizures Prescriptions: Levetiracetam [Keppra] 750 mg PO BID #60 tablet Comments: You were seen in the ED for first time seizure. You should not drive until cleared by a neurologist. The recommendation is to avoid swimming as well as other activities that could become hazardous if you have an unexpected seizure. Please follow up with Dr. Rollins in clinic. Return to the ED for new or worsening symptoms or other concerns. A prescription for anti-seizure medicine keppra was [facility] electronically to [facility].
[2023-05-06 03:50] LABS: BASOPHILS % (AUTO) 0.3 %; EOSINOPHILS # (AUTO) 0.2 10^3/uL (0.0-0.7); EOSINOPHILS % (AUTO) 2.3 %; HCT - HEMATOCRIT 36.7 % (42.0-52.0); HGB - HEMOGLOBIN 12.9 g/dL (14.0-18.0); LYMPHOCYTES # (AUTO) 0.7 10^3/uL (1.5-3.5); LYMPHOCYTES % (AUTO) 6.7 %; MEAN CORPUSCULAR HEMOGLOBIN 30.6 pg (27.0-31.0); MEAN CORPUSCULAR HGB CONC 35.1 g/dL (32.0-36.0); MEAN CORPUSCULAR VOLUME 87.2 fL (80.0-94.0); MEAN PLATELET VOLUME 8.1 fL (7.4-11.4); MONOCYTES # (AUTO) 0.8 10^3/uL (0.0-1.0); MONOCYTES % (AUTO) 8.1 %; NEUTROPHILS # (AUTO) 8.5 10^3/uL (1.5-6.6); NEUTROPHILS % (AUTO) 82.1 %; PLT - PLATELET COUNT 213 10^3/uL (130-450); RED BLOOD COUNT 4.21 10^6/uL (4.70-6.10); RED CELL DISTRIBUTION WIDTH 12.5 % (12.0-15.0); WHITE BLOOD COUNT 10.3 x10^3/uL (4.8-10.8)
[2023-05-06] MEDS ORDERED: levETIRAcetam 500 MG/5 ML VIAL IVP STA ×2 (03:52→07:25)
[2023-05-06 04:05] LABS: ALBUMIN 3.6 g/dL (3.2-5.5); ALBUMIN/GLOBULIN RATIO 1.2 (1.0-2.2); ALKALINE PHOSPHATASE 130 IU/L (42-121); ALT ALANINE AMINOTRANSFERASE 163 IU/L (10-60); AST ASPARTATE AMINOTRANSFERASE 129 IU/L (10-42); BILIRUBIN,TOTAL 0.6 mg/dL (0.2-1.0); BUN - BLOOD UREA NITROGEN 24 mg/dL (6-20); CALCIUM 9.1 mg/dL (8.5-10.3); CARBON DIOXIDE - CO2 23 mmol/L (21-32); CHLORIDE 98 mmol/L (101-111); CREATININE 0.7 mg/dL (0.6-1.3); ETOH - ETHANOL < 10.0 mg/dL; GFR - MDRD 111 (>89); GLUCOSE 101 mg/dL (74-104); LIPASE 49 U/L (11-82); MAGNESIUM 1.9 mg/dL (1.7-2.3); POTASSIUM 3.5 mmol/L (3.5-4.5); SODIUM 130 mmol/L (135-145); TOTAL PROTEIN 6.6 g/dL (6.4-8.9)
[2023-05-06] MEDS ORDERED: levETIRAcetam INJ 1,000 MG in SODIUM CHLORIDE 0.9% 100ML 100 ML IV STA ×2 (04:26→07:33)
--- NOTE | 2023-05-06 06:55 | XRAY Report ---
PROCEDURE: Chest 1 View X-Ray INDICATIONS: modified trauma TECHNIQUE: One view of the chest was acquired. COMPARISON: None. FINDINGS: Surgical changes and devices: The MTPJ. The most superior sternal wire is fractured. Lungs and pleura: Bilateral interstitial prominence. No focal consolidation. No pleural effusions or pneumothorax. Mediastinum: Mediastinal contours appear normal. Heart size is normal. Bones and chest wall: No suspicious bony lesions. Overlying soft tissues appear unremarkable. IMPRESSION: 1. Bilateral interstitial prominence suggesting mild CHF or atypical pneumonia. Recommend clinical co rrelation. No significant discrepancy with the preliminary interpretation. Reviewed by: Mateo Ng MD on 05/06/2023 6:54 AM PDT Approved by: Mateo Ng MD on 05/06/2023 6:54 AM PDT Station ID: [id number]
--- NOTE | 2023-05-06 06:59 | XRAY Report ---
PROCEDURE: Pelvis 1 View INDICATIONS: modified trauma TECHNIQUE: 1 view(s) of the pelvis acquired. COMPARISON: None. FINDINGS: Bones: No fractures or dislocations. No suspicious bony lesions. Yski-se-heautsbl osteoarthritis in hips and sacroiliac joints. Soft tissues: Visualized bowel gas pattern is normal. No suspicious soft tissue calcifications. N o history of a vascular stent in the right pelvis. IMPRESSION: No acute bony abnormality. Findings are concordant with preliminary interpretation provided by [facility]. Reviewed by: Mateo Ng MD on 05/06/2023 6:57 AM PDT Approved by: Mateo Ng MD on 05/06/2023 6:57 AM PDT Station ID: [id number]
--- NOTE | 2023-05-06 07:00 | CT Report ---
PROCEDURE: HEAD WO INDICATIONS: Head trauma, mod-severe TECHNIQUE: Noncontrast 4.5 mm thick angled axial sections acquired from the foramen magnum to the vertex. For r adiation dose reduction, the following was used: automated exposure control, adjustment of mA and/or kV according to patient size. COMPARISON: None. FINDINGS: Image quality: Excellent. CSF spaces: Basal cisterns are patent. No extra-axial fluid collections. Ventricles are normal in size and shape. Brain: No midline shift. No intracranial masses or hemorrhage. Valadez-white matter interface is norm al. Moderate cerebral volume loss and periventricular white matter chronic small vessel ischemic sanjana nges. Skull and face: Calvarium and visualized facial bones are intact, without suspicious lesions. Sinuses: Visualized sinuses and mastoids are clear. IMPRESSION: 1. No acute intracranial abnormality. Findings are concordant with preliminary interpretation provided by [facility]. Reviewed by: Mateo Ng MD on 05/06/2023 6:59 AM PDT Approved by: Mateo Ng MD on 05/06/2023 6:59 AM PDT Station ID: [id number]
--- NOTE | 2023-05-06 07:03 | CT Report ---
PROCEDURE: CERVICAL SPINE WO INDICATIONS: Neck trauma, midline tenderness TECHNIQUE: Noncontrast 3 mm thick sections acquired from the skull base to the T4 level. Sagittal and coronal r eformats were then constructed. For radiation dose reduction, the following was used: automated exp osure control, adjustment of mA and/or kV according to patient size. COMPARISON: Chest x-ray, 05/06/2023. FINDINGS: Image quality: Excellent. Bones: No fractures or dislocations. Moderate degenerative disc and facet disease in cervical spine . Visualized superior ribs are intact. Soft tissues: Prevertebral soft tissues are normal in thickness. No paravertebral hematomas. No ap ical pneumothoraces. Calcified plaque plaques at the carotid bifurcations bilaterally. Bilateral int erstitial prominence. There is a small groundglass opacity in the right apex. IMPRESSION: 1. No acute cervical spine injuries. 2. Moderate degenerative changes in cervical spine. 3. Bilateral interstitial prominence and pulmonary apices. 4. A small groundglass opacity in the right upper lobe, which may be secondary to atypical pneumonia. Consider follow-up chest CT if clinically indicated. Findings are concordant with preliminary interpretation provided by [facility]. Reviewed by: Mateo Ng MD on 05/06/2023 7:02 AM PDT Approved by: Mateo Ng MD on 05/06/2023 7:02 AM PDT Station ID: [id number]
[2023-05-06] MEDS ORDERED: GADOBUTROL 7.5 MMOL/7.5 ML VIAL ONE (12:02)
[2023-05-06 12:12] LABS: MUDS CUTOFF CONCENTRATIONS CUTOFF CONC BELOW:
[2023-05-06 12:20] LABS: BILIRUBIN,URINE NEGATIVE (NEGATIVE); GLUCOSE, URINE (UA) NEGATIVE (NEGATIVE); KETONES,URINE (UA) 40 mg/dL (NEGATIVE); LEUKOCYTE ESTERASE, URINE NEGATIVE (NEGATIVE); NITRITE,URINE NEGATIVE (NEGATIVE); OCCULT BLOOD,URINE NEGATIVE (NEGATIVE); PH,URINE 5.5 PH (5.0-7.5); PROTEIN,URINE TRACE mg/dL (NEGATIVE); UROBILINOGEN,URINE 0.2 (NORMAL) E.U./dL (NORMAL)
[2023-05-06 12:21] LABS: CLARITY,URINE CLEAR (CLEAR)
[2023-05-06 12:35] LABS: COCAINE SCREEN URINE NEGATIVE (NEGATIVE); METHAMPHETAMINES SCREEN, URINE NEGATIVE (NEGATIVE); THC CANNABINOID SCREEN, URINE NEGATIVE (NEGATIVE); TRICYCLIC ANTIDEPRESSANT,URINE POSITIVE (NEGATIVE)
[2023-05-06 12:36] LABS: AMPHETAMINE SCREEN,URINE NEGATIVE (NEGATIVE); BARBITURATE SCREEN,UR NEGATIVE (NEGATIVE); BENZODIAZEPINES SCREEN, URINE NEGATIVE (NEGATIVE); METHADONE SCREEN, URINE NEGATIVE (NEGATIVE); OPIATE SCREEN, URINE NEGATIVE (NEGATIVE); OXYCODONE SCREEN, URINE NEGATIVE (NEGATIVE); PROPOXYPHENE SCREEN, URINE NEGATIVE (NEGATIVE)
[2023-05-06] MEDS ORDERED: GADOBUTROL 7.5 MMOL/7.5 ML VIAL IVP ONE (12:54)
--- NOTE | 2023-05-06 13:35 | MRI Report ---
PROCEDURE: BRAIN W/WO INDICATIONS: first time seizure, prior hx cva CONTRAST: GADAVIST 6.3 ML TECHNIQUE: Noncontrast axial T1 spin echo, axial T2 fast spin echo, sagittal and axial FLAIR, coronal T2 fast sp in echo, axial gradient echo, axial diffusion and ADC through the brain. After the administration of contrast, axial and coronal T1 spin echo with fat saturation through the brain. COMPARISON: CT head 05/06/2023 FINDINGS: Image quality: Motion is present, limiting areas of fine detail evaluation. CSF spaces: Basal cisterns are patent. No extra-axial fluid collections. Ventricles are normal in size and shape. Brain: No midline shift. No intracranial bleeds or masses. No abnormal intracranial enhancement. There is cerebral volume loss for age. Prior lacunar ischemia are noted within the thalami bilateral ly as well as lewis radiata and centrum semiovale. There is periventricular white matter chronic sma ll vessel ischemic change. The brainstem appears normal. Diffusion-weighted images demonstrate no a cute ischemic insults. No chronic ischemic insults. Normal intravascular flow voids are present. Skull and face: Calvarial marrow is normal in signal. Orbits appear normal. Sinuses: Minimal scattered sinus mucosal thickening as well as minimal right mastoid air cell fluid. IMPRESSION: 1. No acute intracranial process. 2. Moderate atrophy and chronic microvascular ischemic changes. Reviewed by: Keisha Coffey MD on 05/06/2023 1:34 PM PDT Approved by: Keisha Coffey MD on 05/06/2023 1:34 PM PDT Station ID: [id number]
[2023-05-06 13:47] VITALS: BP 113/68
--- NOTE | 2023-05-06 14:09 | ED Physician Documentation ---
ED Addendum - Addendum Addendum: 05/06/23 14:08 The patient has been stable since change of shift. He was awaiting MRI brain to evaluate new onset of seizures. The brain MRI was subsequently obtained and did not show any acute injury. Old infarcts were noted. The prior ER physician had already talked with neurology with the plan on starting the patient on Keppra. Prescription had been written. Without any acute abnormality to change disposition, at this point we can discharge the patient home as intended. Diagnoses: New onset seizures 2. History of prior strokes Disposition: The patient discharged home in stable condition.
== END 2023-05-06 13:30 | disposition home or self-care (01) ==
LOC: EDUNIT# → ED 03:29
DX: R56.9 Unspecified convulsions (principal); Z86.73 Personal history of transient ischemic attack (TIA), and cerebral infarction without residual deficits
CPT/HCPCS: 36415; 70450; 70553; 71045; 72125; 72170; 80053; 80306; 81003; 83690; 83735; 84145; 85025; 96365; 99284; A9585; G0480; 80320; 81001; 87086

== ENCOUNTER 2023-06-04 14:35 | Outpatient (CLI) | payer MEDICARE, OTHER ==
[2023-06-04 20:09] LABS: BASOPHILS # (AUTO) 0.1 10^3/uL (0.0-0.1); BASOPHILS % (AUTO) 0.9 %; EOSINOPHILS # (AUTO) 0.2 10^3/uL (0.0-0.7); EOSINOPHILS % (AUTO) 2.2 %; HCT - HEMATOCRIT 42.1 % (42.0-52.0); HGB - HEMOGLOBIN 13.9 g/dL (14.0-18.0); LYMPHOCYTES # (AUTO) 1.2 10^3/uL (1.5-3.5); LYMPHOCYTES % (AUTO) 14.8 %; MEAN CORPUSCULAR HEMOGLOBIN 30.4 pg (27.0-31.0); MEAN CORPUSCULAR VOLUME 92.1 fL (80.0-94.0); MEAN PLATELET VOLUME 9.1 fL (7.4-11.4); MONOCYTES # (AUTO) 0.7 10^3/uL (0.0-1.0); MONOCYTES % (AUTO) 8.5 %; NEUTROPHILS # (AUTO) 5.7 10^3/uL (1.5-6.6); NEUTROPHILS % (AUTO) 73.3 %; PLT - PLATELET COUNT 187 10^3/uL (130-450); RED BLOOD COUNT 4.57 10^6/uL (4.70-6.10); RED CELL DISTRIBUTION WIDTH 12.9 % (12.0-15.0); WHITE BLOOD COUNT 7.8 x10^3/uL (4.8-10.8)
[2023-06-04 20:22] LABS: ALBUMIN/GLOBULIN RATIO 1.3 (1.0-2.2); BILIRUBIN,TOTAL 0.4 mg/dL (0.2-1.0); CALCIUM 9.1 mg/dL (8.5-10.3); CREATININE 0.8 mg/dL (0.6-1.3); MAGNESIUM 1.9 mg/dL (1.7-2.3); POTASSIUM 4.4 mmol/L (3.5-4.5)
== END 2023-06-04 14:36 | disposition home or self-care (01) ==
LOC: LAB.S 14:35
PROVIDERS: ATTEND Internal Medicine
DX: E87.1 Hypo-osmolality and hyponatremia (principal); R56.9 Unspecified convulsions
CPT/HCPCS: 36415; 80053; 83735; 85025

== ENCOUNTER 2023-07-28 12:09 | Outpatient (CLI) | payer MEDICARE, OTHER | END 2023-07-28 23:59 | disposition short-term general hospital (02) | LOC: EMS 12:09 | DX: R47.81 Slurred speech (principal); R13.10 Dysphagia, unspecified; Z79.01 Long term (current) use of anticoagulants | CPT/HCPCS: A0425; A0429 ==

== ENCOUNTER 2023-12-20 07:42 | Outpatient (CLI) | payer MEDICARE, OTHER ==
[2023-12-20 14:46] LABS: BASOPHILS # (AUTO) 0.1 10^3/uL (0.0-0.1); BASOPHILS % (AUTO) 0.7 %; EOSINOPHILS # (AUTO) 0.2 10^3/uL (0.0-0.7); EOSINOPHILS % (AUTO) 2.5 %; HCT - HEMATOCRIT 44.6 % (42.0-52.0); HGB - HEMOGLOBIN 14.5 g/dL (14.0-18.0); LYMPHOCYTES # (AUTO) 1.6 10^3/uL (1.5-3.5); LYMPHOCYTES % (AUTO) 21.1 %; MEAN CORPUSCULAR HEMOGLOBIN 30.1 pg (27.0-31.0); MEAN CORPUSCULAR HGB CONC 32.5 g/dL (32.0-36.0); MEAN CORPUSCULAR VOLUME 92.5 fL (80.0-94.0); MEAN PLATELET VOLUME 9.7 fL (7.4-11.4); MONOCYTES # (AUTO) 0.7 10^3/uL (0.0-1.0); MONOCYTES % (AUTO) 10.1 %; NEUTROPHILS # (AUTO) 4.8 10^3/uL (1.5-6.6); NEUTROPHILS % (AUTO) 65.5 %; PLT - PLATELET COUNT 217 10^3/uL (130-450); RED BLOOD COUNT 4.82 10^6/uL (4.70-6.10); RED CELL DISTRIBUTION WIDTH 12.3 % (12.0-15.0); WHITE BLOOD COUNT 7.3 x10^3/uL (4.8-10.8)
[2023-12-20 14:49] LABS: INR 1.1 (0.8-1.2); PT - PROTHROMBIN TIME 11.7 secs (9.9-12.6)
[2023-12-20 15:28] LABS: CALCIUM 9.7 mg/dL (8.5-10.3); CREATININE 0.9 mg/dL (0.6-1.3); POTASSIUM 4.3 mmol/L (3.5-4.5)
== END 2023-12-20 07:43 | disposition home or self-care (01) ==
LOC: LAB.S 07:42
PROVIDERS: ATTEND Internal Medicine Cardiovascular Disease
DX: I67.9 Cerebrovascular disease, unspecified (principal)
CPT/HCPCS: 36415; 80048; 85025; 85610